=== PATIENT | male | born 1990 | race Caucasian/White ===

== ENCOUNTER 2018-09-05 20:07 | Emergency (ER) | END 2018-09-05 21:13 | disposition home or self-care (01) ==

== ENCOUNTER 2018-11-07 23:06 | Emergency (ER) | payer MEDICAID ==
[~2018-11-07] VITALS: Wt 122.9 kg
[~2018-11-07 23:06] MED LIST: ALBU8.5H8 INH
--- NOTE | 2018-11-08 01:05 | ERD ---
ER Documentation Chief Complaint Chief Complaint bib ra from home for headache x 2 days HPI This is a 28-year-old male presents emergency department with complaints of headache that got worse in the last 24 hours, chest discomfort for 2 days. Stated that he never had this headache before. Denies loss of consciousness, dizziness, neck pain, neck stiffness, throat pain, difficulty swallowing, difficulty breathing lying flat, shoulder pain, back pain, abdominal pain, nausea, vomiting, constipation, diarrhea, urinary symptoms, loss of bowel and bladder control, trauma, injury, falls, difficulty walking due to pain, numbness or tingling sensation, calf pain, recent travel, recent major surgery in the last 3 weeks, calf pain, recent long travel, recent exposure to any illness, recent antibiotic use in the last 3 months, fever, chills, seizures. Past medical history: Denies. Surgical history: Denies. Social: Denies use of alcoholic beverages, use of illegal drugs. Smokes 10 sticks of cigarettes a day. ROS All systems reviewed and are negative except as per history of present illness. Medications Home Meds Active Scripts Hydroxyzine Hcl* (Hydroxyzine Hcl*) 50 Mg Tablet, 50 MG PO Q6H PRN for ANXIETY, #30 TAB Prov:TAMIKOSHUKRIBANSEVEROAR F 11/08/18 Ibuprofen* (Motrin*) 800 Mg Tab, 800 MG PO Q6H PRN for PAIN AND OR ELEVATED TEMP, #30 TAB Prov:TAMIKOILABAN,SEVEROAR F 11/08/18 Albuterol Sulfate* (Proair HFA*) 8.5 Gm Hfa.aer.ad, 2 PUFF INH Q4, #1 INHALER Prov:JOSE KHAN DO 09/05/18 Allergies Allergies: Coded Allergies: No Known Allergy (Unverified , 11/07/18) PMhx/Soc Medical and Surgical Hx: pt denies Medical Hx, pt denies Surgical Hx Hx Psychiatric Problems: Yes (Anxiety) Hx Alcohol Use: No Hx Substance Use: No Hx Tobacco Use: Yes Smoking Status: Current some day smoker Physical Exam Vitals Vital Signs Date Temp Pulse Resp B/P (MAP) Pulse Ox O2 O2 Flow FiO2 Time Delivery Rate 11/08/18 59 16 140/89 98 Room Air 05:45 (106) 11/07/18 98.3 63 19 139/91 100 23:10 (107) Physical Exam Const: No acute distress Head: Atraumatic. Normocephalic. Eyes: Normal Conjunctiva ENT: Normal External Ears, Nose and Mouth. Neck: Full range of motion. No meningismus. Resp: Clear to auscultation bilaterally. Chest areas no vesicular lesions. Cardio: Regular rate and rhythm, no murmurs Abd: Soft, non tender, non distended. Normal bowel sounds Skin: No petechiae or rashes. Back: No midline or flank tenderness Ext: No cyanosis, or edema Neur: Awake and alert. Romberg test is negative. No neurological deficits. Psych: Normal Mood and Affect Result Diagram: 11/08/18 0106 11/08/18 0106 Results 24 hrs Laboratory Tests Test 11/08/18 01:06 11/08/18 05:10 White Blood Count 9.6 10^3/ul Red Blood Count 5.32 10^6/ul Hemoglobin 15.3 g/dl Hematocrit 45.0 % Mean Corpuscular Volume 84.6 fl Mean Corpuscular Hemoglobin 28.8 pg Mean Corpuscular Hemoglobin Concent 34.0 g/dl Red Cell Distribution Width 12.5 % Platelet Count 282 10^3/UL Mean Platelet Volume 10.0 fl Immature Granulocytes % 0.300 % Neutrophils % 64.9 % Lymphocytes % 24.9 % Monocytes % 5.7 % Eosinophils % 3.6 % Basophils % 0.6 % Nucleated Red Blood Cells % 0.0 /100WBC Immature Granulocytes # 0.030 10^3/ul Neutrophils # 6.2 10^3/ul Lymphocytes # 2.4 10^3/ul Monocytes # 0.6 10^3/ul Eosinophils # 0.4 10^3/ul Basophils # 0.1 10^3/ul Nucleated Red Blood Cells # 0.0 10^3/ul Prothrombin Time 12.8 Sec Prothrombin Time Ratio 1.0 INR International Normalized Ratio 0.95 Activated Partial Thromboplast Time 29.9 Sec Sodium Level 143 mmol/L Potassium Level 3.9 mmol/L Chloride Level 103 mmol/L Carbon Dioxide Level 28 mmol/L Anion Gap 12 Blood Urea Nitrogen 13 mg/dl Creatinine 0.74 mg/dl Est Glomerular Filtrat Rate mL/min > 60 mL/min Glucose Level 111 mg/dl Calcium Level 9.5 mg/dl Total Bilirubin 0.2 mg/dl Direct Bilirubin 0.00 mg/dl Indirect Bilirubin 0.2 mg/dl Aspartate Amino Transf (AST/SGOT) 27 IU/L Alanine Aminotransferase (ALT/SGPT) 54 IU/L Alkaline Phosphatase 91 IU/L Troponin I < 0.012 ng/ml < 0.012 ng/ml Total Protein 7.2 g/dl Albumin 4.7 g/dl Globulin 2.50 g/dl Albumin/Globulin Ratio 1.88 Current Medications Medications Dose Sig/King Start Time Status Last (Trade) Ordered Route PRN Stop Time Admin Dose Reason Admin Lorazepam 1 mg ONCE ONCE 11/08/18 DC 11/08/18 (Ativan) PO 02:30 02:33 11/08/18 02:31 Aspirin 325 mg ONCE ONCE 11/08/18 DC (Aspirin) PO 02:30 11/08/18 02:30 Procedures/MDM Diagnostic tests: EKG: Sinus bradycardia with a ventricular rate of 51 bpm. No STEMI. Read by supervising physician. Blood works: Reviewed. 01:06 First troponin was negative. 03:55 Second troponin was negative. Chest x-ray: No evidence for active cardiopulmonary disease. CT of the brain: Negative enhanced head CT. Treatment: Ativan. Re-evaluation: Denies pain. No neurological deficits. Ambulatory with steady gait. Final diagnosis: Headache. Chest pain. Prescription: Motrin. Hydroxyzine. Follow-up with PCP in the next 24-48 hours. Come back here in the emergency department for any new symptoms or any worsening symptoms. All questions and concerns were answered. Patient and family members verbalized understanding and agreed with plan of care. Hemodynamically stable on discharge. Departure Diagnosis: Primary Impression: Headache Additional Impression: Chest pain Condition: Stable Additional Instructions: Follow-up with PCP in the next 24-48 hours. Come back here in the emergency department for any new symptoms or any worsening symptoms. VERONIQUE PALACIOS Nov 08, 2018 01:05
[2018-11-08] MEDS ORDERED: ASPIRIN 325 MG TAB PO ONE (02:30)
[2018-11-08] MEDS ORDERED: LORAZEPAM 1 MG TAB PO ONE (02:30)
[2018-11-08 05:45] VITALS: BP 140/89; PULSE 59; RESP 16
[2018-11-08] MEDS ORDERED: IBUP800T48 PO (06:01)
[2018-11-08] MEDS ORDERED: HYDR50TA15 PO (06:01)
== END 2018-11-08 06:19 | disposition home or self-care (01) ==
LOC: FTE 23:06
DX: R51 Headache (principal); F17.210 Nicotine dependence, cigarettes, uncomplicated; R07.9 Chest pain, unspecified
CPT/HCPCS: 70450; 71046; 80053; 84484; 85025; 85610; 85730; 93005; Z7502; Z7610

== ENCOUNTER 2018-12-11 21:09 | Emergency (ER) | payer MEDICAID, OTHER ==
[~2018-12-11] VITALS: Ht 170.2 cm; Wt 110.0 kg
[~2018-12-11 21:09] MED LIST changes: +HYDR50TA15 PO; +IBUP800T48 PO
[2018-12-11 21:13] VITALS: Ht 170.2 cm; Wt 110.0 kg
--- NOTE | 2018-12-11 21:25 | ERD ---
ER Documentation Chief Complaint Chief Complaint palpitations, head head, feeling weird HPI This a 28-year-old otherwise healthy male presents for evaluation of palpitations, as well as pinching sensation over his head bilaterally. He has no other medical problems, he works in construction, he smokes 8 cigarettes a day, he states that he recently establish primary care. He had some blood work done, which will be available Friday. There is no family history of coronary disease at a young age, he does not drink alcohol he has no history of diabetes or hyper lipidemia. ROS All systems reviewed and are negative except as per history of present illness. Medications Home Meds Active Scripts Hydroxyzine Hcl* (Hydroxyzine Hcl*) 50 Mg Tablet, 50 MG PO Q6H PRN for ANXIETY, #30 TAB Prov:PASILABANSEVEROAR F 11/08/18 Ibuprofen* (Motrin*) 800 Mg Tab, 800 MG PO Q6H PRN for PAIN AND OR ELEVATED TEMP, #30 TAB Prov:TAMIKOILASEVERO BARTONAR F 11/08/18 Albuterol Sulfate* (Proair HFA*) 8.5 Gm Hfa.aer.ad, 2 PUFF INH Q4, #1 INHALER Prov:RASHMI KHANANGELINE BARAHONA 09/05/18 Allergies Allergies: Coded Allergies: No Known Allergy (Unverified , 11/07/18) PMhx/Soc Medical and Surgical Hx: pt denies Medical Hx, pt denies Surgical Hx Hx Psychiatric Problems: Yes (Anxiety) Hx Alcohol Use: No Hx Substance Use: No Hx Tobacco Use: Yes Smoking Status: Never smoker Physical Exam Vitals Vital Signs Date Temp Pulse Resp B/P (MAP) Pulse Ox O2 O2 Flow FiO2 Time Delivery Rate 12/11/18 98.2 71 16 129/85 98 Room Air 21:33 (100) 12/11/18 98.2 80 16 144/81 100 Room Air 21:14 (102) 12/11/18 98.2 87 16 140/80 100 21:13 (100) Physical Exam Const: No acute distress Head: Atraumatic Eyes: Normal Conjunctiva ENT: Normal External Ears, Nose and Mouth. Neck: Full range of motion. No meningismus. Resp: Clear to auscultation bilaterally Cardio: Regular rate and rhythm, no murmurs Abd: Soft, non tender, non distended. Normal bowel sounds Skin: No petechiae or rashes Back: No midline or flank tenderness Ext: No cyanosis, or edema Neur: Awake and alert, cranial nerves II through XII intact, no cerebral ataxia Psych: Normal Mood and Affect Results 24 hrs Laboratory Tests Test 12/11/18 21:20 Bedside Glucose 108 mg/dL Procedures/MDM 28-year-old male presents for evaluation of palpitations was pinched his head. Exam reveals well appearing, nontoxic 28-year-old male no acute distress, his EKG showed normal sinus rhythm with no abnormalities, I have a very low shoemaker spicion for anginal equivalent, given the patient's age, low risk, and otherwise normal EKG. He had no neurologic deficits, and he has no major risk factors for stroke, his blood glucose was within normal limits, at this point I feel patient stable for discharge home strict precautions given return for any chest pain, any changes symptoms, or any worsening concerns, at discharge she was amatory and in no acute distress. EKG: Rate/Rhythm: Normal Sinus Rhythm QRS, ST, T-waves: No changes consistent w/ acute ischemia Impression: No evidence of ischemia or arrhythmia Departure Diagnosis: Primary Impression: Chest pain Chest pain type: unspecified Qualified Codes: R07.9 - Chest pain, unspecified Condition: Stable JV BAR MD Dec 11, 2018 21:25
[2018-12-11 21:33] VITALS: BP 129/85; PULSE 71; RESP 16
== END 2018-12-11 21:33 | disposition home or self-care (01) ==
LOC: E/R 21:09
DX: R07.9 Chest pain, unspecified (principal); Z87.891 Personal history of nicotine dependence
CPT/HCPCS: 82962; Z7502